=== PATIENT | male | born 1980 | race Caucasian/White ===

== ENCOUNTER 2023-10-16 10:12 | Outpatient (REF) | payer OTHER, SELFPAY ==
[2023-10-16 14:51] LABS: Alanine Aminotransferase 29 U/L (0-40); Albumin Level 4.1 g/dL (3.5-5.0); Alkaline Phosphatase 60 U/L (39-117); Anion Gap 15 (12-20); Aspartate Amino Transferase 24 U/L (5-37); Bilirubin Total 0.5 mg/dL (0.0-1.0); Blood Urea Nitrogen 8 mg/dL (9-16); Calcium 9.8 mg/dL (8.4-10.2); Carbon Dioxide 28 mmol/L (22-29); Chloride 99 mmol/L (96-108); Cholesterol 240 mg/dL (<200); Estimated Glomerular Filt Rate > 60; Glucose Random 277 mg/dL (60-115); HDL Cholesterol 40 mg/dL (>40); LDL Cholesterol Calculated 178 mg/dL (<100); Potassium 3.8 mmol/L (3.3-5.1); Sodium 138 mmol/L (135-145); Total Protein 7.5 g/dL (6.5-8.0); Triglycerides 110 mg/dL (<150)
[2023-10-16 15:07] LABS: Estimated Average Glucose 160 mg/dL; Hemoglobin A1c % 7.2 % (<6.0)
== END 2023-10-16 10:13 | disposition home or self-care (01) ==
LOC: HO.CHCLDS 10:12
PROVIDERS: Visit Provider Internal Medicine
DX: E11.9 Type 2 diabetes mellitus without complications (principal)
CPT/HCPCS: 36415; 80053; 80061; 83036

== ENCOUNTER 2024-12-24 12:11 | Outpatient (REF) | payer OTHER, SELFPAY ==
--- OUTSIDE RECORDS SUMMARY | 2024-12-24 12:27 | XMS_ITS | Clinical Summary ---
Author Organization [employer] Address [address] [facility] 7t [place] [address] Care Team Providers Care Typer Name Role Phone Win Tay MD Primary Care Prov ider Allergies Active Allergy Reactions Criticality Noted Date Comments Coconut Fatty Acid High 06/14/2020 Other reaction(s): Hives / Skin Rash, Itching, Trouble Breathing Dust Mite Extract 12/05/2022 Measles Mumps And Rubella Vaccine Live (Obsolete) 01/23/2019 Medications Blood Pressure kit 1 kit in the morning. 1 kit 023 Active Blood Glucose Monitoring Suppl (FreeStyle Anaconda Lite) w/Device kit TEST BLOOD SUGAR THREE TIMES DAILY 1 kit 023 Active Alcohol Swabs (Alcohol Prep) 70 % padsIndications: Type 2 diabetes mellitus without complication, without long-term current use of insulin ([facility]) USE DIRECTED TO TEST BLOOD SUGAR THREE TIMES DAILY 100 each 3 024 Active TRUEplus Lancets 33G miscIndications: Type 2 diabetes mellitus without complication, without long-term current use of insulin ([facility]) USE DIRECTED TO TEST BLOOD SUGAR THREE TIMES DAILY 100 each 3 024 Active cholecalciferol (Vitamin D-3) 25 MCG (1000 UT) tabletIndication s:Vitamin D deficiency Take 1 tablet (25 mcg) by mouth in the morning. 90 tablet 1 024 Active traZODone (Desyrel) 100 MG tabletIndication s:Benign essential hypertension Take 1 tablet (100 mg) by mouth at bedtime. 90 tablet 3 024 2024 Active chlorproMAZINE (Thorazine) 200 MG tabletIndication s:Benign essential hypertension Take 1 tablet (200 mg) by mouth 2 times daily. 180 tablet 3 024 2024 Active benztropine (Cogentin) 1 MG tabletIndication s:Benign essential hypertension Take 1 tablet (1 mg) by mouth 2 times daily. 180 tablet 3 024 2024 Active FREESTYLE LITE test stripIndications :Type 2 diabetes mellitus without complication, without long-term current use of insulin ([facility]) USE DIRECTED TO TEST BLOOD SUGAR THREE TIMES DAILY 100 strip 5 Active lisinopril-hydro CHLOROthiazide 10-12.5 MG tabletIndication s:Benign essential hypertension Take 1 tablet by mouth Once per day. 90 tablet 3 024 2024 Active EPINEPHrine (Epipen) 0.3 MG/0.3ML injection syringeIndicatio ns:Bee sting allergy INJECT INTRAMUSCULARLY DIRECTED ON PACKAGE AND GO TO EMERGENCY ROOM 2 each 025 Active atorvastatin (Lipitor) 80 MG tabletIndication s:Mixed hyperlipidemia TAKE 1 TABLET BY MOUTH EVERY DAY 90 tablet 1 025 Active EPINEPHrine (Epipen) 0.3 MG/0.3ML injection syringeIndicatio ns:Bee sting allergy Inject 0.3 mL (0.3 mg) as directed 1 (one) time for 1 dose. Inject into upper leg. Call 911 after use. 0.3 mL 024 2024 Discontinued( Reorder (will not trigger notification to Pharmacy)) atorvastatin (Lipitor) 80 MG tabletIndication s:Mixed hyperlipidemia TAKE 1 TABLET BY MOUTH EVERY DAY 90 tablet 1 024 2024 Discontinued Active Problems Problem Noted Date Diagnosed Date Pain of finger of right hand 04/08/2023 Assessment & Plan (04/08/2023 7:38 PM EDT): -right middle finger pain after slammed door -noted small bruise but no concerning findings for fracture or compartmental syndrome -rest, elevation , ice -tylenol , NSAIDS prn -alarm signs and symptoms -refuse today to have XR but low concern for fracture Type 2 diabetes mellitus wit hout complication, without long-term current use of insulin 07/18/2022 Assessment & Plan (01/06/2024 7:53 PM EDT): Not at target, today was 7.2%, he does not want to start medication, he is drinking almost 2lt of soda a day, he and his business communications instructor refers he will cut down all carbs and sugars, follow up in 3 months Assessment & Plan (09/09/2023 8:40 PM EST): Managed with diet, he has not been to good adhering to low carb no sugar diet, new labs will be ordered for guidance Assessment & Plan (12/05/2022 11:21 AM EDT): Refers diet has improved, will place new lab order for guidance of therapy, he has refused medical therapy Assessment & Plan (07/18/2022 2:38 PM EST): Not interested in treatment, has lost almost 10lbs, congratulated patient, last a1c from 03/2022 was 6.9, reinforced importance of diet and exercise, new lab order will be placed, will follow up in 3 months Mixed hyperlipidemia 07/18/2022 Assessment & Plan (01/06/2024 8:02 PM EDT): Will increase atorvastatin dose to 80mg, continue low fat diet and exercise as tolerated Assessment & Plan (09/09/2023 8:40 PM EST): On atorvastatin, tld to get blood work for guidance of therapy Assessment & Plan (04/04/2023 10:32 AM EDT): Will order new cmp/lipid panel, atorvastatin was increased to 40mg almost 3 months ago, mom refers taking it daily Assessment & Plan (07/18/2022 2:38 PM EST): Will place new orders to check current liver/cholesterol levels, if above target LDL<70 will increase atorvastatin 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 Autistic disorder 03/21/2016 Benign essential hypertension 03/21/2016 Assessment & Plan (01/06/2024 7:52 PM EDT): Controlled, reinforced low sodium diet and exercise as tolerated, keep bp <130/80 Assessment & Plan (09/09/2023 8:39 PM EST): Controlled on lisinopril/hctz, reinfoced low sodium diet and exercise as tolerated, follow up in 3 months, Assessment & Plan (04/04/2023 10:31 AM EDT): Controlled, mother refers maintains below 130/80, reinforced low sodium diet and exercise as tolerated Assessment & Plan (12/05/2022 11:19 AM EDT): Refers blood pressure monitor is broken, will send a new one to [facility] pharmacy, keep bp log, reinforced low sodium diet and exercise as tolerated Assessment & Plan (07/18/2022 2:36 PM EST): Controlled, he did not brought a bp log for today visit, reinforced low sodium diet and exercise as tolerated, will follow up in 3 months Bipolar disorder 03/21/2016 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 Morbid obesity 03/21/2016 Encounters Date Type Department Care Team Description 12/24/2024 Telephone [facility] MEDICINE [address] [place] [address] Win Tay MD Lab Orders 12/21/2024 Refill [facility] MED & PEDS [address] [place] [address] Win Tay MD Mixed hyperlipidemia 12/03/2024 Refill [facility] MED & PEDS [address] [place] [address] Win Tay MD Bee sting allergy from Last 3 Months Family History Medical History Relation Name Comments Cancer Maternal Grandmother Coronary artery disease Maternal Grandmother Stroke Maternal Grandmother Diabetes Mother Hypertension Mother Asthma Sister Relation Name Status Comments Maternal Grandmother Mother Sister Social History Tobacco Use Types Packs/Day Years Used Date Smoking Tobacco: Never Smokeless Tobacco: Never Tobacco Cessation:Counseling Given: Not Answered Alcohol Use Standard Drinks/Week Comments Never 0 (1 standard drink = 0.6 oz pur e alcohol) Depression Answer Date Recorded Patient Health Questionnaire-9 Score 0 03/26/2023 Housing Stability Answer Date Recorded What is your housing situation today? I have ramesh soriano 05/27/[address] you li ve. Do you have problems with any of the following? None of the above 05/27/2023 Food Insecurity Answer Date Recorded Within the past 12 months, y ou worried that your food would run out before you got money to buy more: Never True 05/27/2023 Within the past 12 months,th e food you bought just didn't last and you didn't have enough money to get more: Never True Transportation Answer Date Recorded In the past 12 months, has l ack of transportation kept you from medical appts, meetings, work or from getting things needed for daily living? No 05/27/2023 Utilities Answer Date Recorded In the past 12 months, has t he electric, gas, oil or water company threatened to shut off services in your home? No 05/27/2023 Depression Answer Date Recorded Patient Health Questionnaire-2 Score 0 03/26/2023 Sex and Gender Information Value Date Recorded Sex Assigned at Male 06/04/2022 10:30 AM EDT Legal Sex Male 10:30 AM EDT Gender Identity Male 06/04/2022 10:30 AM EDT Sexual Orientation Straight 06/04/2022 10 :30 AM EDT Last Filed Vital Signs Vital Sign Reading Time Taken Comments Blood Pressure 124/80 01/06/2024 1:07 PM EDT Pulse 90 01/06/2024 1:07 PM EDT Temperature 36 ??C (96.8 ??F) 01/06/2024 1:07 PM EDT Respiratory Rate 20 01/06/2024 1:07 PM EDT Oxygen Saturation 99% 04/05/2023 1:16 PM EDT Inhaled Oxygen Concentration - - Weight 114 kg (251 lb) 01/06/2024 1:07 PM EDT Height 180.3 cm (5' 11 ) 01/06/2024 1:07 PM EDT Body Mass Index 35.01 01/06/2024 1:07 PM EDT Plan of Treatment Upcoming Encounters Date Type Department Care Team (Late st Contact Info) Description 01/22/2025 2:00 PM EDT Office Visit [facility] MED & PEDS [address] [place] [address] Kimmie Fuchs MD [address] [place] [address] Health Maintenance Due Date Last Done Comments Disability Screening 1982 Diabetes: Foot Exam 1992 Eye Exam 1992 Alcohol/Substance Use Screening 1994 Family Planning (PISQ) 1997 DTaP/Tdap/Td Vaccines (1 - Tdap) 2001 Hepatitis B Vaccines (1 of 3 - 19+ 3-dose series) 2001 Pneumococcal Vaccine: Pediatrics (0 to 5 Years) and At-Risk Patients (6 to 49) Years) (1 of 2 - PCV) 2001 Diabetes: Urine Protein Screening 12/07/2023 12/06/2022 Diabetes: Hemoglobin A1C 01/16/2024 024, 12/06/2022, 03/13/2022, Additional history exists Depression Screening 03/26/2024 03/26/2023, 03/26/20 23 SDOH Screening 03/26/2024 03/26/2023 COVID-19 Vaccine ( - season) 2024 Influenza Vaccine (#1) 2024 Lipid Panel 10/15/2024 10/16/2023, 05/0 11/2022, 03/13/2022, Additional history exists Tobacco Screening 01/05/2025 01/06/2024 Zoster Vaccines (1 of 2) 2032 RSV Patients and Patients Aged 60 years or older (1 - 1-dose 75+ series) 2057 HIV Screening Completed 03/13/2022, 12/07/2021 Hepatitis C Screening Completed 12/06/2022 , 03/13/2022, 12/07/2021 HIB Vaccines Aged Out No longer eligi ble based on patient's age to complete this topic HPV Vaccines Aged Out No longer eligi ble based on patient's age to complete this topic Hepatitis A Vaccines Aged Out No long er eligible based on patient's age to complete this topic IPV Vaccines Aged Out No longer eligi ble based on patient's age to complete this topic Meningococcal B Vaccine Aged Out No l onger eligible based on patient's age to complete this topic Meningococcal Vaccine Aged Out No romeo patrick eligible based on patient's age to complete this topic RSV under 20 months Aged Out No longe r eligible based on patient's age to complete this topic Rotavirus Vaccines Aged Out No longer eligible based on patient's age to complete this topic Procedures Procedure Name Priority Date/Time Associated Diagnosis Comments HEMOGLOBIN A1C Routine 10/16/2023 10:16 AM EDT Type 2 diabetes mellitus without complication, without long-term current use of insulin ([facility]) LIPID PANEL, STANDARD Routine 10/16/2023 10:16 AM EDT Type 2 diabetes mellitus without complication, without long-term current use of insulin ([facility]) HEPATITIS C AB W/REFL TO HCV RNA, QN, PCR Routine 12/06/2022 9:59 AM EDT Benign essential hypertension Type 2 diabetes mellitus without complication, without long-term current use of insulin ([facility]) Mixed hyperlipidemia ALBUMIN, RANDOM URINE W/O CREATININE Routine 12/06/2022 9:59 AM EDT Benign essential hypertension Type 2 diabetes mellitus without complication, without long-term current use of insulin ([facility]) Mixed hyperlipidemia HIV 1/2 ANTIGEN/ANTIBODY, FOURTH GENERATION W/RFL Routine 03/13/2022 8:17 AM EDT from Last 3 Months or Most Recently Relevant to Health Maintenance Results * (ABNORMAL) Hemoglobin A1c (10/16/2023 10:16 AM EDT) Hemoglobin A1c 7.2(H) <6.0 % [facility] Comment:Hemoglobin A1C Refer ence Range Adults: 4.8 - 6.0 % Non diabetic: < 6.0 % Goal: < 7.0 %Additional Action Suggested: > 8.0 %Note: Hemoglobin A1c results are invalid for patients with abnormal amounts of HbF. Blood transfusions may impact the HbA1c concentration in the patient sample. Estimated Average Glucose 160 mg/dL [facility] Comment:eAG = Estimated ave rage glucose which is %A1C expressed asaverage glucose, using the formula of the K1M-WfhrgazThsmlwb Glucose study (ADAG), Diabetes Care, Vol.31,#8,Mar. 2007 Blood Venous blood specimen / Unknown 10/16/2023 10:16 AM EDT 10/16/2023 2:10 PM EDT us Win Shah MD LAB BLOOD ORDERABL ES Final Result [facility] [address] [place] [phone] * (ABNORMAL) Lipid Panel, Standard (10/16/2023 10:16 AM EDT) Triglycerides 110 <150 mg/dL [facility] Comment:Desirable Triglyceri de: less than 150 mg/dLBorderline High Triglyceride 150-199 mg/dLHigh Triglyceride: 200-499 mg/dLVery High Triglyceride: greater than or equal to 5OO mg/dL Cholesterol 240(H) <200 mg/dL [facility] Comment:Desirable Cholestero l: less than 200 mg/dLBorderline High Cholesterol: 200-239 mg/dLHigh Cholesterol: greater than 239 mg/dL LDL Cholesterol Calculated 178(H) <100 mg/dL [facility] Comment:Desirable LDL: less than 100 mg/dLNear Optimal/Above Optimal LDL: 110- 129 mg/dLBorderline High LDL: 130-159 mg/dLHigh LDL: 160-189 mg/dLVery High LDL: greater than or equal to 190 mg/dL HDL Cholesterol 40(L) >40 mg/dL [facility] Comment:Desirable HDL: great er than 40 mg/dL Note: This HDL assay may give artificially low results in patients with liver disease. Blood Venous blood specimen / Unknown 10/16/2023 10:16 AM EDT 10/16/2023 2:10 PM EDT Win Shah MD LAB BLOOD ORDERABL ES Final Result Performing Organization Address City/[facility]/ZIP Co de Phone Number [facility] [address] [place] [phone] * Hepatitis C Antibody with Reflex to HCV, RNA, Quantitative, Real-Time PCR (12/06/2022 9:59 AM EDT) Hepatitis C Antibody NON-REACT INGA NON-REACT INGA [facility] [place] [facility] Index 0.08 <1.00 [facility] [place] [facility] Comment: HCV antibody was non-reactive. There is no laboratory evidence of HCV infection. In most cases, no further action is required. However, if recent HCV exposure is suspected, a test for HCV RNA (test code 16337) is suggested. For additional information please refer to http://education.[employer]/faq/RAI71h2 (This link is being provided for informational/ educational purposes only.) Blood Venous blood specimen / Unknown 12/06/2022 9:59 AM EDT 12/06/2022 10:00 AM EDT Narrative [facility] - 12/07/2022 5:37 PM EDT FASTING:YES FASTING: YES Win Shah MD LAB BLOOD ORDERABL ES Final Result Performing Organization Address [facility] Co de Phone Number [facility] [address], [place] [address] [facility] [place] [facility] [address] [place] [address] * Albumin, Random Urine W/O Creatinine (12/06/2022 9:59 AM EDT) Albumin, Urine 1.3 See Note: mg/dL [facility] [place] [facility] Comment: Reference Range: Reference Range Not established [employer] [facility] [place] [facility] Comment: The ADA defines abnormalities in albumin excretion as follows: Albuminuria Category ? Result (mcg/mg creatinine) Normal to Mildly increased ?<30 Moderately increased ?30-299 Severely increased ?> OR = 300 The ADA recommends that at least two of three specimens collected within a 3-6 month period be abnormal before considering a patient to be within a diagnostic category. Urine Urine specimen obtained by clean catch procedure / Unknown 12/06/2022 9:59 AM EDT 12/06/2022 10:00 AM EDT Narrative [facility] - 12/07/2022 5:37 PM EDT FASTING:YES FASTING: YES Win Shah MD LAB URINE ORDERABL ES Final Result [facility] [address], [place] [address] [facility] [address] [place] [phone] * HIV 1/2 ANTIGEN/ANTIBODY,FOURTH GENERATION W/RFL (03/13/2022 8:17 AM EDT) Pathologist [facility] HIV-1/2 ANTIGEN AND ANTIBODIES, 4TH GENERATION W/ REFLEX NON-REACT INGA NON-REACT INGA [facility] Comment: HIV-1 antigen and HIV-1/HIV-2 antibodies were not detected. There is no laboratory evidence of HIV infection. ?? PLEASE NOTE: This information has been disclosed to you from records whose confidentiality may be protected by state law. ??If your state requires such protection, then the state law prohibits you from making any further disclosure of the information without the specific written consent of the person to whom it pertains, or as otherwise permitted by law. A general authorization for the release of medical or other information is NOT sufficient for this purpose. ? For additional information please refer to http://education.[email or web address].[employer].com/faq/IYC884 (This link is being provided for informational/ educational purposes only.) ? The performance of this assay has not been clinically validated in patients less than 2 years old. ?? 03/13/2022 8:17 AM EDT Win Shah MD LAB BLOOD ORDERABL ES Final Result [facility] [address] from Last 3 Months or Most Recently Relevant to Health Maintenance Insurance [facility] < [address] [place] [phone] Care Teams Typer Relationship Specialty Start Date End Date Win Tay MD [address] [place] [phone] PCP - General Internal Medicine 12/14/19
--- OUTSIDE RECORDS SUMMARY | 2024-12-24 12:28 | XMS_ITS | Encounter Summary ---
Author Organization [employer] Address [address] [facility] 7t [place] [address] Care Team Providers Care Senior Sql Server Developer Name Role Phone Win Tay MD Primary Care Prov ider Reason for Visit * Reason Comments Med Refill Encounter Details Date Type Department Care Team ([facility] Contact Info) Description 12/21/2024 Refill [facility] MED & PEDS [address] [place], [place] [phone] Win Tay MD [address] [place] [address] Mixed hyperlipidemia Social History Tobacco Use Types Packs/Day Years Used Date Smoking Tobacco: Never Smokeless Tobacco: Never Alcohol Use Standard Drinks/Week Comments Never 0 [...] Orientation Straight 06/04/2022 10 :30 AM EDT documented as of this encounter Plan of Treatment Upcoming Encounters Date Type Department Care Team (Late st Contact Info) Description 01/22/2025 2:00 PM EDT Office Visit [facility] MED & PEDS [address] [place] [address] Kimmie Fuchs MD [address] [place] [address] documented as of this encounter Visit Diagnoses Diagnosis Mixed hyperlipidemia documented in this encounter Additional Health Concerns Assessment Noted Time PHQ-9 Depression Total Score: 0 03/26/20 23 9:32 AM EDT documented as of this encounter Care Teams Senior Sql Server Developer Relationship Specialty Start Date End Date Win Tay MD [address] [place] [address] PCP - General Internal Medicine 12/14/19 documented as of this encounter
--- OUTSIDE RECORDS SUMMARY | 2024-12-24 12:28 | XMS_ITS | Encounter Summary ---
Author Organization [employer] Address [address] [facility] 7t [place] [address] Care Team Providers Care Social Media Analyst Name Role Phone Win Tay MD Primary Care Prov ider Encounter Details Date Type Department Care Team (Late st Contact Info) Description 10/21/2023 Orders Only [facility] MED & PEDS [address] [place], [place] [phone] Wni Tay MD [address] [place] [address] Vitamin D deficiency Social History Tobacco Use Types Packs/Day Years [...] Description 01/22/2025 2:00 PM EDT Office Visit [facility] MED & PEDS [address] [place] [address] Kimmie Fuchs MD [address] [place] [address] documented as of this encounter Visit Diagnoses Diagnosis Vitamin D deficiency documented in this encounter Additional Health Concerns Assessment Noted Time PHQ-9 Depression Total Score: 0 03/26/20 23 9:32 AM EDT documented as of this encounter Care Teams Social Media Analyst Relationship Specialty Start Date End Date Win Tay MD [address] [place] [address] PCP - General Internal Medicine 12/14/19 documented as of this encounter
--- OUTSIDE RECORDS SUMMARY | 2024-12-24 12:28 | XMS_ITS | Encounter Summary ---
Author Organization [employer] Address [address] [facility] 7t [place] [address] Care Team Providers Care Research Dietitian Name Role Phone Win Tay MD Primary Care Prov ider Reason for Visit * Reason Onset Date Comments Lab Orders 12/24/2024 Encounter Details Date Type Department Care Team ([facility] st Contact Info) Description 12/24/2024 Telephone [facility] MEDICINE [address] [place] [address] Win Tay MD [address] [place] [address] Lab Orders Social History Tobacco Use Types Packs/Day Years [...] AM EDT documented as of this encounter Miscellaneous Notes * Telephone Encounter - Sujata Alfonso RN - 12/24/2024 11:54 AM EDT TC to pt mother to inform of TB Tspot test order. Pt mother asked about other lab work pt needed. Author advised will reach out to provider who wellness exam is scheduled with to see if additional labs are to be ordered. * Addendum Note - Sujata Alfonso RN - 12/24/2024 11:53 AM EDTAddended by: SUJATA ALFONSO on: 12/24/2024 11:53 AM Modules accepted: Orders * Telephone Encounter - Laura Springer - 12/24/2024 11:46 AM EDT PT mom states a TB test will also need to be added for Day Program * Telephone Encounter - Misti Smith - 12/24/2024 9:13 AM EDT Tc from pt mom stating that doctor was gonna send some lab order and clinic seen not to find it. Contact pt Mom at [phone] documented in this encounter Plan of Treatment Upcoming Encounters Date Type Department Care Team (Late st Contact Info) Description 01/22/2025 2:00 PM EDT Office Visit [facility] MED & PEDS [address] [place] [address] Kimmie Fuchs MD [address] [place] [address] Scheduled Orders Name Type Priority Associated Diagnoses Orde r Schedule T-SPOT??.TB Lab Routine Health care maintenance Expected: 12/24/2024 (Approximate), Expires: 12/24/2025 documented as of this encounter Visit Diagnoses Diagnosis Health care maintenance documented in this encounter Additional Health Concerns Assessment Noted Time PHQ-9 Depression Total Score: 0 03/26/20 23 9:32 AM EDT documented as of this encounter Care Teams Research Dietitian Relationship Specialty Start Date End Date Win Tay MD [address] [place] [address] PCP - General Internal Medicine 12/14/19 documented as of this encounter
[2024-12-26 21:09] LABS: TS Negative Control Passed; TS Panel A 0; TS Panel B 0; TS Positive Control Passed; TSpotTB Negative (Negative)
== END 2024-12-24 12:12 | disposition home or self-care (01) ==
LOC: HO.HHCL 12:11
PROVIDERS: Visit Provider Internal Medicine
DX: Z00.00 Encounter for general adult medical examination without abnormal findings (principal)
CPT/HCPCS: 36415; 86481

== ENCOUNTER 2025-01-05 11:21 | Outpatient (REF) | payer OTHER, SELFPAY ==
--- OUTSIDE RECORDS SUMMARY | 2025-01-05 13:01 | XMS_ITS | Clinical Summary ---
Author Organization [employer] Address [address] [facility] [address] [place] [address] Care Team Providers Care Orthodontic Laboratory Technician Name Role Phone Win Tay MD Primary Care Prov ider Allergies Active Allergy Reactions Criticality Noted Date Comments Coconut Fatty Acid High 06/14/2020 Other reaction(s): Hives / Skin Rash, Itching, Trouble Breathing Dust Mite Extract 12/05/2022 Measles Mumps And Rubella Vaccine Live (Obsolete) 01/23/2019 Medications Blood Pressure kit 1 kit in the morning. 1 kit 023 Active Blood Glucose Monitoring Suppl (FreeStyle Spangler Lite) w/Device kit TEST BLOOD SUGAR THREE TIMES DAILY 1 kit 023 Active Alcohol Swabs (Alcohol Prep) 70 % padsIndications: Type 2 diabetes mellitus without complication, without long-term current use of insulin ([facility]) USE DIRECTED TO TEST BLOOD SUGAR THREE TIMES DAILY 100 each 3 024 Active TRUEplus Lancets 33G miscIndications: Type 2 diabetes mellitus without complication, without long-term current use of insulin ([facility]) USE DIRECTED TO TEST [...] mouth at bedtime. 90 tablet 3 024 Active chlorproMAZINE (Thorazine) 200 MG tabletIndication s:Benign essential hypertension Take 1 tablet (200 mg) by mouth 2 times daily. 180 tablet 3 024 Active benztropine (Cogentin) 1 MG tabletIndication s:Benign essential hypertension Take 1 tablet (1 mg) by mouth 2 times daily. 180 tablet 3 024 Active FREESTYLE LITE test stripIndications :Type 2 diabetes mellitus without complication, without long-term current use of insulin ([facility]) USE DIRECTED TO TEST BLOOD SUGAR THREE TIMES DAILY 100 strip 5 024 Active lisinopril-hydro CHLOROthiazide 10-12.5 MG tabletIndication s:Benign [...] EVERY DAY 90 tablet 1 025 Active atorvastatin (Lipitor) 80 MG tabletIndication [...] of soda a day, he and his diesel mechanic helper refers he will cut down all carbs [...] broken, will send a new one to [facility] pharmacy, keep bp log, reinforced low sodium [...] Date Type Department Care Team Description 12/24/2024 Orders Only [facility] [address] [place] [address] Kimmie Fuchs MD Type 2 diabetes mellitus without complication, without long-term current use of insulin ([facility]) (Primary Dx); Benign essential hypertension; Morbid obesity ([facility]) 12/24/2024 Telephone [facility] [address] [place] [address] Win Tay MD Lab Orders 12/21/2024 Refill [facility] [address] [place] [address] Win Tay MD Mixed hyperlipidemia 12/03/2024 Refill [facility] [address] [place] [address] Win Tay MD Bee sting allergy from [...] Description 01/22/2025 2:00 PM EDT Office Visit [facility] [address] [place] [address] Kimmie Fuchs MD [address] [place] [address] Health Maintenance Due Date Last Done Comments [...] SDOH Screening 03/26/2024 03/26/2023 COVID-19 Vaccine ( season) 2024 Lipid Panel 10/15/2024 10/16/2023, 05/0 11/2022, 03/13/2022, Additional history exists Tobacco Screening 01/05/2025 01/06/2024 Influenza Vaccine (Season Ended) 2025 Zoster Vaccines (1 of 2) 2032 RSV [...] Procedure Name Priority Date/Time Associated Diagnosis Comments T-SPOT(R).TB Routine 12/24/2024 12:13 PM EDT Health care maintenance HEMOGLOBIN A1C Routine 10/16/2023 10:16 AM EDT Type 2 diabetes mellitus without complication, without long-term current use of insulin ([facility]/HCC) LIPID PANEL, STANDARD Routine 10/16/2023 10:16 AM EDT Type 2 diabetes mellitus without complication, without long-term current use of insulin ([facility]) HEPATITIS C AB W/REFL TO HCV RNA, QN, PCR Routine 12/06/2022 9:59 AM EDT Benign essential hypertension Type 2 diabetes mellitus without complication, without long-term current use of insulin ([facility]) Mixed hyperlipidemia ALBUMIN, RANDOM URINE W/O CREATININE Routine 12/06/2022 9:59 AM EDT Benign essential hypertension Type 2 diabetes mellitus without complication, without long-term current use of insulin ([facility]) Mixed hyperlipidemia HIV 1/2 ANTIGEN/ANTIBODY, FOURTH GENERATION W/RFL Routine 03/13/2022 8:17 AM EDT from Last 3 Months or Most Recently Relevant to Health Maintenance Results * T-SPOT??.TB (12/24/2024 12:13 PM EDT) T Spot TB Negative Negative [facility] Comment:A negative test resu lt does not exclude the possibilityof exposure to or infection with Mycobacteriumtuberculosis (M. tuberculosis). Patients with recentexposure to TB infected individuals exhibiting anegative T-SPOT.TB result should be considered forretesting within 6 weeks or if other relevant clinicalsymptoms indicate. Results from T-SPOT.TB testing mustbe used in conjunction with each individual'sepidemiological history, current medical status,and results of other diagnostic evaluations.The T-SPOT.TB test is qualitative and results arereported as positive, borderline, or negative, giventhat the test controls perform as expected. In linewith the Centers for Disease Control and Prevention's2010 recommendation to report quantitative measurementsalongside the qualitative result, the laboratoryprovides spot counts for informational purposes only.The T-SPOT.TB test should not be interpreted as aquantitative test. TS PANEL A 0 [facility] TS PANEL B 0 [facility] Negative Control Passed [facility] Positive Control Passed [facility] Comment:For additional infor mation, please refer tohttp://education.[employer]/faq/JPW528(This link is being provided for informational/educational purposes only.)THIS TEST WAS PERFORMED AT:[facility] [id number] [place] [address] STRE[address]ER MD,PHD 12/24/2024 12:1 3 PM EDT 12/24/2024 1:04 PM EDT us Win Shah MD LAB BLOOD ORDERABL ES Final Result [facility] [address] [place] [phone] * (ABNORMAL) Hemoglobin A1c (10/16/2023 10:16 AM EDT) Hemoglobin A1c 7.2(H) <6.0 % [facility] Comment:Hemoglobin A1C Refer ence Range Adults: 4.8 - 6.0 % Non diabetic: < 6.0 % Goal: < 7.0 %Additional Action Suggested: > 8.0 %Note: Hemoglobin A1c results are invalid for patients with abnormal amounts of HbF. Blood transfusions may impact the HbA1c concentration in the patient sample. Estimated Average Glucose 160 mg/dL [facility] Comment:eAG = Estimated ave rage glucose which is %A1C expressed asaverage glucose, using the formula of the X7I-[id number] Glucose study (ADAG), Diabetes Care, Vol.31,#8,Mar. 2007 Blood Venous blood specimen / Unknown 10/16/2023 10:16 AM EDT 10/16/2023 2:10 PM EDT us Win Shah MD LAB BLOOD ORDERABL ES Final Result [facility] [address] [place] [address] [phone] * (ABNORMAL) Lipid Panel, Standard (10/16/2023 10:16 AM EDT) Triglycerides 110 <150 mg/dL [facility] Comment:Desirable Triglyceri de: less than 150 mg/dLBorderline High Triglyceride 150-199 mg/dLHigh Triglyceride: 200-499 mg/dLVery High Triglyceride: greater than or equal to 5OO mg/dL Cholesterol 240(H) <200 mg/dL [facility] Comment:Desirable Cholestero l: less than 200 mg/dLBorderline High Cholesterol: 200-239 mg/dLHigh Cholesterol: greater than 239 mg/dL LDL Cholesterol Calculated 178(H) <100 mg/dL [facility] Comment:Desirable LDL: less than 100 mg/dLNear Optimal/Above Optimal LDL: 110- 129 mg/dLBorderline High LDL: 130-159 mg/dLHigh LDL: 160-189 mg/dLVery High LDL: greater than or equal to 190 mg/dL HDL Cholesterol 40(L) >40 mg/dL [facility] Comment:Desirable HDL: great er than 40 mg/dL Note: This HDL assay may give artificially low results in patients with liver disease. Blood Venous blood specimen / Unknown 10/16/2023 10:16 AM EDT 10/16/2023 2:10 PM EDT us Win Shah MD LAB BLOOD ORDERABL ES Final Result Performing Organization Address City/[facility]/ZIP Co de Phone Number [facility] [address] [place] [phone] * Hepatitis C Antibody with Reflex to HCV, RNA, Quantitative, Real-Time PCR (12/06/2022 9:59 AM EDT) Hepatitis C Antibody NON-REACT INGA NON-REACT INGA [employer] [place] [facility] Index 0.08 <1.00 [facility] Comment: HCV antibody was non-reactive. There is no laboratory evidence of HCV infection. In most cases, no further action is required. However, if recent HCV exposure is suspected, a test for HCV RNA (test code 90841) is suggested. For additional information please refer to http://education.[employer]/faq/JFS10i9 (This link is being provided for informational/ educational purposes only.) Blood Venous blood specimen / Unknown 12/06/2022 9:59 AM EDT 12/06/2022 10:00 AM EDT Narrative [facility] - 12/07/2022 5:37 PM EDT FASTING:YES FASTING: YES Win Shah MD LAB BLOOD ORDERABL ES Final Result Performing Organization Address [facility] Co de Phone Number [facility] [address], [place] [address] [facility] [address] [place] [address] * Albumin, Random Urine W/O Creatinine (12/06/2022 9:59 AM EDT) Pathologist [facility] Albumin, Urine 1.3 See Note: mg/dL [facility] [facility] Comment: Reference Range: Reference Range Not established [facility] [employer] [place] [facility] Comment: The ADA defines abnormalities in albumin [...] MD LAB URINE ORDERABL ES Final Result Performing Organization Address [facility] de Phone Number [address], [place] [address] [facility] [facility] [address] [place] [address] * HIV 1/2 ANTIGEN/ANTIBODY,FOURTH GENERATION W/RFL (03/13/2022 8:17 AM EDT) [facility] HIV-1/2 ANTIGEN AND ANTIBODIES, 4TH GENERATION W/ REFLEX NON-REACT INGA NON-REACT INGA [facility] Comment: HIV-1 antigen and [...] ? For additional information please refer to http://education.[employer]faq/NCQ845 (This link is being provided for informational/ educational purposes only.) ? The performance of this assay has not been clinically validated in patients less than 2 years old. ?? 03/13/2022 8:17 AM EDT Win Shah MD LAB BLOOD ORDERABL ES Final Result [facility] [address] from Last 3 Months or Most Recently Relevant to Health Maintenance Insurance [facility] ONE CARE < [address] [place] [id number] Care Teams Orthodontic Laboratory Technician Relationship Specialty Start Date End Date Win Tay MD [address] [place] [phone] PCP - General Internal Medicine 12/14/19
[2025-01-05 13:34] LABS: MANUAL DIFF FLAG NO
[2025-01-05 13:58] LABS: Eosinophils Percent Auto 0.1 % (0-4); Hematocrit 40.7 % (42.0-52.0); Hemoglobin 13.9 g/dl (14.0-18.0); Imm Gran Abs Auto 0.01 X10*3/uL (0.00-0.03); Imm Gran Pct Auto 0.1 % (0.0-0.4); Lymphocytes Absolute Auto 2.3 X10*3/uL (1.2-4.9); Mean Corpuscular HGB Conc 34.2 g/dl (31.0-36.0); Mean Corpuscular Hemoglobin 30.5 pg (27.0-33.0); Mean Corpuscular Volume 89.5 fL (80.0-98.0); Mean Platelet Volume 11.5 fL (9.4-12.4); Monocytes Absolute Auto 0.6 X10*3/uL (0.1-1.2); Monocytes Percent Auto 8.6 % (2-11); Neutrophils Absolute Auto 4.1 x10*3/uL (2.0-8.3); Neutrophils Percent Auto 58.2 % (45-73); Platelet Count 245 X10*3/uL (160-400); Red Blood Count 4.55 X10*6/uL (4.60-5.80); Red Cell Distribution Width 13.2 % (11.0-16.0); White Blood Count 7.1 X10*3/uL (4.8-10.8)
[2025-01-05 14:29] LABS: Estimated Average Glucose 169 mg/dL; Hemoglobin A1c % 7.5 % (<6.0)
[2025-01-05 14:30] LABS: Alanine Aminotransferase 23 U/L (0-40); Albumin Level 4.4 g/dL (3.5-5.0); Alkaline Phosphatase 69 U/L (39-117); Anion Gap 12 (12-20); Aspartate Amino Transferase 31 U/L (5-37); Bilirubin Total 0.4 mg/dL (0.0-1.0); Blood Urea Nitrogen 8 mg/dL (9-16); Calcium 9.4 mg/dL (8.4-10.2); Carbon Dioxide 26 mmol/L (22-29); Chloride 104 mmol/L (96-108); Cholesterol 253 mg/dL (<200); Estimated Glomerular Filt Rate > 60; Glucose Random 155 mg/dL (60-115); HDL Cholesterol 33 mg/dL (>40); LDL Cholesterol Calculated 193 mg/dL (<100); Potassium 3.4 mmol/L (3.3-5.1); Sodium 139 mmol/L (135-145); TSH reflex Free T4 1.05 uIU/mL (0.32-4.0); Total Protein 7.5 g/dL (6.5-8.0); Triglycerides 135 mg/dL (<150)
== END 2025-01-05 11:22 | disposition home or self-care (01) ==
LOC: HO.HHCL 11:21
PROVIDERS: Visit Provider Internal Medicine
DX: E11.9 Type 2 diabetes mellitus without complications (principal); I10 Essential (primary) hypertension; E66.01 Morbid (severe) obesity due to excess calories
CPT/HCPCS: 36415; 80053; 80061; 83036; 84443; 85025

== ENCOUNTER 2025-03-24 11:43 | Outpatient (REF) | payer OTHER, SELFPAY ==
--- OUTSIDE RECORDS SUMMARY | 2025-03-24 13:00 | XMS_ITS | Clinical Summary ---
Author Organization [employer] Address [address] [facility] [address] [place] [address] Care Team Providers Care Home Health Care Provider Name Role Phone Win Tay MD Primary Care Prov ider Allergies Active Allergy Reactions Criticality Noted Date Comments Coconut Fatty Acid High 06/14/2020 Other reaction(s): Hives / Skin Rash, Itching, Trouble Breathing Dust Mite Extract 12/05/2022 Measles Mumps And Rubella Vaccine Live (Obsolete) 01/23/2019 Medications Blood Pressure kit 1 kit in the morning. 1 kit 023 Active Blood Glucose Monitoring Suppl (FreeStyle [place] Lite) w/Device kit TEST BLOOD SUGAR THREE TIMES DAILY 1 kit 023 Active Alcohol Swabs (Alcohol Prep) 70 % padsIndications: Type 2 diabetes mellitus without complication, without long-term current use of insulin ([facility]) USE DIRECTED TO TEST BLOOD SUGAR THREE TIMES DAILY 100 each 3 024 Active TRUEplus Lancets 33G miscIndications: Type 2 diabetes mellitus without complication, without long-term current use of insulin ([facility]) USE DIRECTED TO TEST BLOOD SUGAR THREE TIMES DAILY 100 each 3 024 Active FREESTYLE LITE test stripIndications :Type 2 diabetes mellitus without complication, without long-term current use of insulin ([facility]) USE DIRECTED TO TEST BLOOD SUGAR THREE TIMES DAILY 100 strip 5 024 Active EPINEPHrine (Epipen) 0.3 MG/0.3ML injection syringeIndicatio ns:Bee sting allergy INJECT INTRAMUSCULARLY DIRECTED ON PACKAGE AND GO TO EMERGENCY ROOM 2 each 025 Active benztropine (Cogentin) 1 MG tabletIndication s:Benign essential hypertension Take 1 tablet (1 mg) by mouth 2 times daily. 180 tablet 3 025 2025 Active chlorproMAZINE (Thorazine) 200 MG tabletIndication s:Benign essential hypertension Take 1 tablet (200 mg) by mouth 2 times daily. 180 tablet 3 025 2025 Active lisinopril-hydro CHLOROthiazide 10-12.5 MG tabletIndication s:Benign essential hypertension Take 1 tablet by mouth Once per day. 90 tablet 3 025 Active traZODone (Desyrel) 100 MG tabletIndication s:Benign essential hypertension Take 1 tablet (100 mg) by mouth at bedtime. 90 tablet 3 025 Active atorvastatin (Lipitor) 80 MG tabletIndication s:Mixed hyperlipidemia Take 1 tablet (80 mg) by mouth Once per day. 90 tablet 1 025 Active cholecalciferol (Vitamin D-3) 25 MCG (1000 UT) tabletIndication s:Vitamin D deficiency Take 1 tablet (25 mcg) by mouth in the morning. 90 tablet 1 025 Active cholecalciferol (Vitamin D-3) 25 MCG (1000 UT) tabletIndication s:Vitamin D deficiency Take 1 tablet (25 mcg) by mouth in the morning. 90 tablet 1 024 2024 Discontinued( Reorder (will not trigger notification to Pharmacy)) traZODone (Desyrel) 100 MG tabletIndication s:Benign essential hypertension Take 1 tablet (100 mg) by mouth at bedtime. 90 tablet 3 024 2024 Discontinued chlorproMAZINE (Thorazine) 200 MG tabletIndication s:Benign essential hypertension Take 1 tablet (200 mg) by mouth 2 times daily. 180 tablet 3 024 2024 Discontinued( Reorder (will not trigger notification to Pharmacy)) benztropine (Cogentin) 1 MG tabletIndication s:Benign essential hypertension Take 1 tablet (1 mg) by mouth 2 times daily. 180 tablet 3 024 2024 Discontinued( Reorder (will not trigger notification to Pharmacy)) lisinopril-hydro CHLOROthiazide 10-12.5 MG tabletIndication s:Benign essential hypertension Take 1 tablet by mouth Once per day. 90 tablet 3 024 2024 Discontinued atorvastatin (Lipitor) 80 MG tabletIndication s:Mixed hyperlipidemia TAKE 1 TABLET BY MOUTH EVERY DAY 90 tablet 1 025 2024 Discontinued( Reorder (will not trigger notification to Pharmacy)) EPINEPHrine (Epipen) 0.3 MG/0.3ML injection syringeIndicatio ns:Bee sting allergy INJECT INTRAMUSCULARLY DIRECTED ON PACKAGE AND GO TO EMERGENCY ROOM 2 each 025 2024 Discontinued( Reorder (will not trigger notification to Pharmacy)) lisinopril-hydro CHLOROthiazide 10-12.5 MG tabletIndication s:Benign essential hypertension TAKE 1 TABLET BY MOUTH EVERY DAY 90 tablet 3 025 2024 Discontinued( Reorder (will not trigger notification to Pharmacy)) traZODone (Desyrel) 100 MG tabletIndication s:Benign essential hypertension TAKE 1 TABLET BY MOUTH AT BEDTIME 90 tablet 3 025 2024 Discontinued( Reorder (will not trigger notification to Pharmacy)) Active Problems Problem Noted Date Diagnosed Date [...] of soda a day, he and his prison guard supervisor refers he will cut down all carbs [...] broken, will send a new one to [facility] pharmacy, keep bp log, reinforced [...] Encounters Date Type Department Care Team Description 03/24/2025 10:45 AM EDT Office Visit [facility] [address] [place] [address] Kimmie Fuchs MD Benign essential hypertension (Primary Dx); Type 2 diabetes mellitus without complication, without long-term current use of insulin ([facility]); Mixed hyperlipidemia; Bee sting allergy; Vitamin D deficiency; Dietary counseling; Exercise counseling; Class 1 obesity due to excess calories with serious comorbidity and body mass index (BMI) of 32.0 to 32.9 in adult; Encounter for immunization 03/24/2025 Travel 03/23/2025 Telephone [facility] [address] [place] [address] Win Tay MD Chart Prep 03/17/2025 Refill [facility] [address] [place] [address] Win Tay MD Benign essential hypertension 02/16/2025 Refill [facility] [address] [place] [address] Win Tay MD Bee sting allergy 01/20/2025 Telephone [facility] [address] [place] [address] Win Tay MD Chart Prep 01/14/2025 Refill [facility] [address] [place] [address] Win Tay MD Bee sting allergy 01/07/2025 Results Follow-Up [facility] [address] [place] [address] Nessa Tsai RN CBC auto differential, Comprehensive Metabolic Panel, Lipid Panel, Standard, Additional followed-up results: 2 12/24/2024 Orders Only [facility] [address] [place] [address] Kimmie Fuchs MD Type 2 diabetes mellitus without complication, without long-term current use of insulin (CMS/HCC) (Primary Dx); Benign essential hypertension; Morbid obesity ([facility]/H[facility]) 12/24/2024 Telephone [facility] [address] [place] [address] Win Tay MD Lab Orders from Last 3 Months Immunizations Immunization Administration Dates Next Due HepB-CpG 03/24/2025 Pneumococcal Conjugate PCV 20 03/24/2025 Tdap 03/24/2025 Family History Medical History Relation Name Comments [...] Date Recorded Patient Health Questionnaire-9 Score 0 03/24/2025 Patient Health Questionnaire-9 Score 0 03/24/2025 Last PHQ-9: Questionnaire Data Not on file 0 03/24/2025 Housing Stability Answer Date Recorded What is your housing situation today? I have ramesh soriano 03/24/[address] you li ve. Do you have problems with any of the following? None of the above 03/24/2025 Food Insecurity Answer Date Recorded Within the past 12 months, y ou worried that your food would run out before you got money to buy more: Never True 03/24/2025 Within the past 12 months,th e food you bought just didn't last and you didn't have enough money to get more: Never True Transportation Answer Date Recorded In the past 12 months, has l ack of transportation kept you from medical appts, meetings, work or from getting things needed for daily living? No 03/24/2025 Utilities Answer Date Recorded In the past 12 months, has t he electric, gas, oil or water company threatened to shut off services in your home? No 03/24/2025 Depression Answer Date Recorded Patient Health Questionnaire-2 Score 0 03/24/2025 Internet Access Answer Date Recorded Internet Access Q1 Yes 03/24/2025 Internet Access Q2 Not on file 03/24/2025 Sex and Gender Information Value Date Recorded Sex Assigned at Male 06/04/2022 10:30 AM EDT Legal Sex Male 10:30 AM EDT Gender Identity Male 06/04/2022 10:30 AM EDT Sexual Orientation Straight 06/04/2022 10 :30 AM EDT Last Filed Vital Signs Vital Sign Reading Time Taken Comments Blood Pressure 131/85 03/24/2025 10:55 AM EDT Pulse 97 03/24/2025 10:55 AM EDT Temperature 36.8 C (98.2 F) 03/24/2025 10:55 AM EDT Respiratory Rate 20 03/24/2025 10:55 AM EDT Oxygen Saturation 98% 03/24/2025 10:55 AM EDT Inhaled Oxygen Concentration - - Weight 104 kg (230 lb) 03/24/2025 10:55 AM EDT Height 180.3 cm (5' 11 ) 03/24/2025 10:55 AM EDT Body Mass Index 32.08 03/24/2025 10:55 AM EDT Plan of Treatment Health Maintenance Due Date Last Done Comments Disability Screening 1982 Diabetes: Foot Exam 1992 Eye Exam 1992 Family Planning (PISQ) 1997 HPV Vaccines (1 - Male 3-dose series) 1997 Diabetes: Urine Protein Screening 12/07/2023 12/06/2022 COVID-19 Vaccine (1 - season) 2024 Tobacco Screening 01/05/2025 01/06/2024 Influenza Vaccine (#1) 2025 Diabetes: Hemoglobin A1C 04/07/2025 025, 10/16/2023, 12/06/2022, Additional history exists Hepatitis B Vaccines (2 of 2 - CpG 2-dose series) 04/21/2025 03/24/2025 Lipid Panel 01/05/2026 01/05/2025, 10/03, 12/06/2022, Additional history exists Alcohol/Substance Use Screening 03/24/2026 03/24/2025 Depression Screening 03/24/2026 03/24/2025, 03/24/20 SDOH Screening 03/24/2026 03/24/2025 Zoster Vaccines (1 of 2) 2032 DTaP/Tdap/Td Vaccines (2 - Td or Tdap) 03/24/2035 03/24/2025 RSV Patients and Patients Aged 60 years or older (1 - 1-dose 75+ series) 2057 HIV Screening Completed 03/13/2022, 12/07/2021 Hepatitis C Screening Completed 12/06/2022 , 03/13/2022, 12/07/2021 Pneumococcal Vaccine: Pediatrics (0 to 5 Years) and At-Risk Patients (6 to 49) Years Completed 03/24/2025 HIB Vaccines Aged Out No longer eligi [...] Date/Time Associated Diagnosis Comments HEMOGLOBIN A1C Routine 01/05/2025 11:22 AM EDT Type 2 diabetes mellitus without complication, without long-term current use of insulin (CMS/HCC) Benign essential hypertension Morbid obesity (CMS/HCC) TSH W/REFLEX TO FT4 Routine 01/05/2025 1 1:22 AM EDT Type 2 diabetes mellitus without complication, without long-term current use of insulin (CMS/HCC) Benign essential hypertension Morbid obesity (CMS/HCC) LIPID PANEL, STANDARD Routine 01/05/2025 11:22 AM EDT Type 2 diabetes mellitus without complication, without long-term current use of insulin (CMS/HCC) Benign essential hypertension Morbid obesity (CMS/HCC) COMPREHENSIVE METABOLIC PANEL Routine 01/05/2025 11:22 AM EDT Type 2 diabetes mellitus without complication, without long-term current use of insulin (CMS/HCC) Benign essential hypertension Morbid obesity (CMS/HCC) CBC WITH AUTO DIFFERENTIAL Routine 01/05/2025 11:22 AM EDT Type 2 diabetes mellitus without complication, without long-term current use of insulin (CMS/HCC) Benign essential hypertension Morbid obesity (CMS/HCC) T-SPOT(R).TB Routine 12/24/2024 12:13 PM EDT Health care maintenance HEPATITIS C AB W/REFL TO HCV RNA, QN, PCR Routine 12/06/2022 9:59 AM EDT Benign essential hypertension Type 2 diabetes mellitus without complication, without long-term current use of insulin (CMS/HCC) Mixed hyperlipidemia ALBUMIN, RANDOM URINE W/O CREATININE Routine 12/06/2022 9:59 AM EDT Benign essential hypertension Type 2 diabetes mellitus without complication, without long-term current use of insulin (CMS/HCC) Mixed hyperlipidemia HIV 1/2 ANTIGEN/ANTIBODY, FOURTH GENERATION W/RFL Routine 03/13/2022 8:17 AM EDT from Last 3 Months or Most Recently Relevant to Health Maintenance Results * TSH W/Reflex to FT4 (01/05/2025 11:22 AM EDT) TSH reflex Free T4 1.05 0.32 - 4.0 uIU/mL [facility] Blood Venous blood specimen / Unknown 01/05/2025 11:22 AM EDT 01/05/2025 1:32 PM EDT Kimmie Fuchs MD LAB BLOOD ORDERABLES Final Result [facility] [address] [place] [phone] * (ABNORMAL) CBC auto differential (01/05/2025 11:22 AM EDT) White Blood Count 7.1 4.8 - 10.8 X10*3/uL [facility] Red Blood Count 4.55(L) 4.60 - 5.80 X10*6/uL [facility] Hemoglobin 13.9(L) 14.0 - 18.0 g/dl [facility] Hematocrit 40.7(L) 42.0 - 52.0 % [facility] Mean Corpuscular Volume 89.5 80.0 - 98.0 fL [facility] Mean Corpuscular Hemoglobin 30.5 27.0 - 33.0 pg [facility] Mean Corpuscular HGB Conc 34.2 31.0 - 36.0 g/dl [facility] Red Cell Distribution Width 13.2 11.0 - 16.0 % [facility] Platelet Count 245 160 - 400 X10*3/uL [facility] Mean Platelet Volume 11.5 9.4 - 12.4 fL [facility] Neutrophils Percent Auto 58.2 45 - 73 % [facility] Imm Gran Pct Auto 0.1 0.0 - 0.4 % [facility] Lymphocytes Percent Auto 33.0 20 - 40 % [facility] Monocytes Percent Auto 8.6 2 - 11 % [facility] Eosinophils Percent Auto 0.1 0 - 4 % [facility] Basophils Percent Auto 0.0 0 - 2 % [facility] NRBC Pct Auto 0.0 0.0 - 0.2 /100WBC [facility] Neutrophils Absolute Auto 4.1 2.0 - 8.3 x10*3/uL [facility] Imm Gran Abs Auto 0.01 0.00 - 0.03 X10*3/uL [facility] Lymphocytes Absolute Auto 2.3 1.2 - 4.9 X10*3/uL [facility] Monocytes Absolute Auto 0.6 0.1 - 1.2 X10*3/uL [facility] Eosinophils Absolute Auto 0.0 0.0 - 0.4 X10*3/uL [facility] Basophils Absolute Auto 0.0 0.0 - 0.2 X10*3/uL [facility] NRBC Abs Auto 0.000 0.0 - 0.012 X10*3/uL [facility] Blood Venous blood specimen / Unknown 01/05/2025 11:22 AM EDT 01/05/2025 1:32 PM EDT us Kimmie Fuchs MD LAB BLOOD ORDERABLES Final Result [facility] [address] [place] [phone] * (ABNORMAL) Hemoglobin A1c (01/05/2025 11:22 AM EDT) Hemoglobin A1c 7.5(H) <6.0 % [facility] Comment:Hemoglobin A1C Refer ence Range Adults: 4.8 - 6.0 % Non diabetic: < 6.0 % Goal: < 7.0 %Additional Action Suggested: > 8.0 %Note: Hemoglobin A1c results are invalid for patients with abnormal amounts of HbF. Blood transfusions may impact the HbA1c concentration in the patient sample. Estimated Average Glucose 169 mg/dL [facility] Comment:eAG = Estimated ave rage glucose which is %A1C expressed asaverage glucose, using the formula of the D2K-MuywdakDkiwsuq Glucose study (ADAG), Diabetes Care, Vol.31,#8,Mar. 2007 Blood Venous blood specimen / Unknown 01/05/2025 11:22 AM EDT 01/05/2025 1:32 PM EDT us Kimmie Fuchs MD LAB BLOOD ORDERABLES Final Result [facility] [address] [place] [phone] * (ABNORMAL) Lipid Panel, Standard (01/05/2025 11:22 AM EDT) Triglycerides 135 <150 mg/dL [facility] Comment:Desirable Triglyceri de: less than 150 mg/dLBorderline High Triglyceride 150-199 mg/dLHigh Triglyceride: 200-499 mg/dLVery High Triglyceride: greater than or equal to 5OO mg/dL Cholesterol 253(H) <200 mg/dL [facility] Comment:Desirable Cholestero l: less than 200 mg/dLBorderline High Cholesterol: 200-239 mg/dLHigh Cholesterol: greater than 239 mg/dL LDL Cholesterol Calculated 193(H) <100 mg/dL [facility] Comment:Desirable LDL: less than 100 mg/dLNear Optimal/Above Optimal LDL: 110- 129 mg/dLBorderline High LDL: 130-159 mg/dLHigh LDL: 160-189 mg/dLVery High LDL: greater than or equal to 190 mg/dL HDL Cholesterol 33(L) >40 mg/dL [facility] Comment:Desirable HDL: great er than 40 mg/dL Note: This HDL assay may give artificially low results in patients with liver disease. Blood Venous blood specimen / Unknown 01/05/2025 11:22 AM EDT 01/05/2025 1:32 PM EDT us Kimmie Fuchs MD LAB BLOOD ORDERABLES Final Result [facility] [address] [place] [phone] * (ABNORMAL) Comprehensive Metabolic Panel (01/05/2025 11:22 AM EDT) Sodium 139 135 - 145 mmol/L [facility] Potassium 3.4 3.3 - 5.1 mmol/L [facility] Chloride 104 96 - 108 mmol/L [facility] Carbon Dioxide 26 22 - 29 mmol/L [facility] Anion Gap 12 12 - 20 [facility] Urea Nitrogen (BUN) 8(L) 9 - 16 mg/dL [facility] Creatinine, Serum 0.97 0.5 - 1.4 mg/dL [facility] Estimated Glomerular Filt Rate >60 [facility] Comment:Chronic Kidney Disea se: Estimated GFR < 60 mL/min/1.78h7Capkpn Kidney Disease: Estimated GFR < 15 mL/min/1.73m2 Glucose 155(H) 60 - 115 mg/dL [facility] Calcium 9.4 8.4 - 10.2 mg/dL [facility] Bilirubin, Total 0.4 0.0 - 1.0 mg/dL [facility] Aspartate Amino Transferase 31 5 - 37 U/L [facility] Alanine Aminotransferase 23 0 - 40 U/L [facility] Total Protein 7.5 6.5 - 8.0 g/dL [facility] Albumin Level 4.4 3.5 - 5.0 g/dL [facility] Alkaline Phosphatase 69 39 - 117 U/L [facility] Blood Venous blood specimen / Unknown 01/05/2025 11:22 AM EDT 01/05/2025 1:32 PM EDT us Kimmie Fuchs MD LAB BLOOD ORDERABLES Final Result [facility] [address] [place] [phone] * T-SPOT??.TB (12/24/2024 12:13 PM EDT) T Spot TB Negative Negative [facility] Comment:A negative test resu lt does [...] as aquantitative test. TS PANEL A 0 [facility] TS PANEL B 0 [facility] Negative Control Passed [facility] Positive Control Passed [facility] Comment:For additional infor patel, please refer tohttp://avolution.TrueAccord/faq/ZGF132(This link is being provided for informational/educational purposes only.)THIS TEST WAS PERFORMED AT:[employer] [id number] [place] [id number]RE[address]ER MD,PHD 12/24/2024 12:1 3 PM EDT 12/24/2024 1:04 PM EDT Win Shah MD LAB BLOOD ORDERABL ES Final Result [facility] [address] [place] [phone] * Hepatitis C Antibody with Reflex to HCV, RNA, Quantitative, Real-Time PCR (12/06/2022 9:59 AM EDT) Hepatitis C Antibody NON-REACT INGA NON-REACT INGA [employer] [facility] [place] [facility] Index 0.08 <1.00 1o1Media Comment: HCV antibody was non-reactive. There is no laboratory evidence of HCV infection. In most cases, no further action is required. However, if recent HCV exposure is suspected, a test for HCV RNA (test code 95020) is suggested. For additional information please refer to http://education.TrueAccord/faq/QKA40n2 (This link is being provided for informational/ educational purposes only.) Blood Venous blood specimen / Unknown 12/06/2022 9:59 AM EDT 12/06/2022 10:00 AM EDT Narrative [facility] - 12/07/2022 5:37 PM EDT FASTING:YES FASTING: YES Win Shah MD LAB BLOOD ORDERABL ES Final Result Performing Organization Address [facility] Co de Phone Number [address], [place] [phone] [employer] [facility] [place] [facility] [address] [place] [phone] * Albumin, Random Urine W/O Creatinine (12/06/2022 9:59 AM EDT) Pathologist [facility] Albumin, Urine 1.3 See Note: mg/dL [employer] [facility] [place] [facility] Comment: Reference Range: Reference Range Not established [facility] [place] [facility] Comment: The ADA defines abnormalities in albumin excretion as follows: Albuminuria Category Result (mcg/mg creatinine) Normal to Mildly increased <30 Moderately increased 30-299 Severely increased > OR = 300 The ADA recommends that [...] ES Final Result Performing Organization Address [facility] Co de Phone Number [address] [phone] [employer] [facility] [place] [facility] [address] [place] [phone] * HIV 1/2 ANTIGEN/ANTIBODY,FOURTH GENERATION W/RFL (03/13/2022 8:17 AM EDT) HIV-1/2 ANTIGEN AND ANTIBODIES, 4TH GENERATION W/ REFLEX NON-REACT INGA NON-REACT INGA [facility] Comment: HIV-1 antigen and HIV-1/HIV-2 antibodies were not detected. There is no laboratory evidence of HIV infection. PLEASE NOTE: This information has been disclosed to you from records whose confidentiality may be protected by state law. If your state requires such protection, then the state law prohibits you from making any further disclosure of the information without the specific written consent of the person to whom it pertains, or as otherwise permitted by law. A general authorization for the release of medical or other information is NOT sufficient for this purpose. For additional information please refer to http://education.TrueAccord/faq/AST584 (This link is being provided for informational/ educational purposes only.) The performance of this assay has not been clinically validated in patients less than 2 years old. 03/13/2022 8:17 AM EDT Win Shah MD LAB BLOOD ORDERABL ES Final Result [facility] [address] from Last 3 Months or Most Recently Relevant to Health Maintenance Insurance [facility] < [address] [id number] Care Teams Home Health Care Provider Relationship Specialty Start Date End Date Win Tay MD [address] [place] [phone] PCP - General Internal Medicine 12/14/19
[2025-03-24 14:42] LABS: MANUAL DIFF FLAG NO
[2025-03-24 14:47] LABS: Hematocrit 43.5 % (42.0-52.0); Hemoglobin 14.3 g/dl (14.0-18.0); Imm Gran Abs Auto 0.01 X10*3/uL (0.00-0.03); Imm Gran Pct Auto 0.2 % (0.0-0.4); Lymphocytes Absolute Auto 1.5 X10*3/uL (1.2-4.9); Mean Corpuscular HGB Conc 32.9 g/dl (31.0-36.0); Mean Corpuscular Hemoglobin 30.2 pg (27.0-33.0); Mean Corpuscular Volume 91.8 fL (80.0-98.0); NRBC Abs Auto 0.000 X10*3/uL (0.0-0.012); NRBC Pct Auto 0.0 /100WBC (0.0-0.2); Platelet Count 271 X10*3/uL (160-400); Red Blood Count 4.74 X10*6/uL (4.60-5.80); White Blood Count 6.2 X10*3/uL (4.8-10.8)
[2025-03-24 15:07] LABS: Alanine Aminotransferase 37 U/L (0-40); Albumin Level 4.4 g/dL (3.5-5.0); Alkaline Phosphatase 74 U/L (39-117); Anion Gap 13 (12-20); Aspartate Amino Transferase 34 U/L (5-37); Blood Urea Nitrogen 8 mg/dL (9-16); Calcium 9.4 mg/dL (8.4-10.2); Carbon Dioxide 28 mmol/L (22-29); Chloride 104 mmol/L (96-108); Cholesterol 239 mg/dL (<200); Estimated Glomerular Filt Rate > 60; HDL Cholesterol 36 mg/dL (>40); Potassium 4.2 mmol/L (3.3-5.1); Sodium 141 mmol/L (135-145); Total Protein 7.6 g/dL (6.5-8.0); Triglycerides 120 mg/dL (<150)
[2025-03-24 16:16] LABS: Microalbum/Creatinine Ratio Ur 2.9 ug/mg cr (<30)
== END 2025-03-24 11:44 | disposition home or self-care (01) ==
LOC: HO.CHCLDS 11:43
PROVIDERS: Visit Provider Internal Medicine
DX: I10 Essential (primary) hypertension (principal); E11.9 Type 2 diabetes mellitus without complications
CPT/HCPCS: 36415; 80053; 80061; 82043; 82570; 84443; 85025